=== PATIENT | female | born 1925 | race Caucasian/White ===

== ENCOUNTER 2016-04-11 12:53 | Inpatient (IN) ==
[2016-04-11] MEDS ORDERED: 0.9 % SODIUM CHLORIDE 1,000 ML IV ONE ×2 (13:07→14:34)
--- NOTE | 2016-04-11 13:19 | Emergency Department Note ---
SOB HPI - General Chief Complaint: Shortness of Breath/Dyspnea Stated Complaint: cough, fever, sob Time Seen by Provider: 04/11/16 13:15 Source: EMS, RN notes reviewed Mode of arrival: EMS Limitations: no limitations - History of Present Illness This patient with dementia apparently had fever and a cough at the long term. - Related Data Home Medications Medication Instructions Recorded Confirmed citalopram 20 mg tablet 20 mg PO QDAY tab 05/22/15 04/11/16 levothyroxine 100 mcg tablet 100 mcg PO QDAY tab 05/22/15 04/11/16 losartan 50 mg tablet 50 mg PO QHS tab 05/22/15 04/11/16 Acetaminophen [Tylenol] 650 mg PO Q4HP PRN 04/11/16 04/11/16 Bisacodyl [Laxative Suppository] 10 mg RC DAILYP PRN 04/11/16 04/11/16 Divalproex [Depakote Sprinkles] 250 mg PO QHS 04/11/16 04/11/16 Fexofenadine HCl [Allergy Relief] 60 mg PO BID 04/11/16 04/11/16 Hydrocortisone Acetate [Anusol Hc] 25 mg IL DAILY PRN 04/11/16 04/11/16 Montelukast [Singular] 1 tab PO DAILY 04/11/16 04/11/16 Na Phos,M-B/Na Phos,Di-Ba [Fleets 1 dose IL DAILYP PRN 04/11/16 04/11/16 Adult] Oxybutynin Chloride [Ditropan Xl] 5 mg PO DAILY 04/11/16 04/11/16 Polyethylene Glycol 3350 [Miralax] 17 gm PO DAILYP PRN 04/11/16 04/11/16 Previous Rx's Medication Instructions Recorded omeprazole 40 mg capsule,delayed 40 mg PO QDAY #30 cap 03/10/16 release Allergies Allergy/AdvReac Type Severity Reaction Status Date / Time alendronate sodium AdvReac Mild Nausea Verified 04/11/16 19:42 [From Fosamax] Penicillins AdvReac Mild Nausea Verified 04/11/16 19:42 Review of Systems Limitations: ROS unobtainable due to patients medical condition Past Medical History - Past Medical History Medical history: Reports: dementia, GERD, hyperlipidemia, hypertension, thyroid disease Surgical history ED: Reports: NOREEN/BSO Psychiatric history: Reports: depression Physical Exam - General Limitations: no limitations General appearance: alert - Head Head exam: atraumatic - Eye Eye exam: Present: normal appearance - ENT ENT exam: normal exam - Neck Neck exam: Present: normal inspection - Chest Chest inspection: Present: normal inspection - Respiratory Respiratory exam: Present: normal lung sounds bilaterally - Cardiovascular Cardiovascular exam: Present: regular rate, normal rhythm, normal heart sounds - Abdominal Exam Abdominal exam: Present: soft, distention. Absent: tenderness - Neurological Exam Neurological exam: Present: alert - Psychiatric Psychiatric exam: Present: normal affect - Skin Skin exam: Present: warm, dry Course Vital Signs Temperature 99.5 F 04/11/16 12:53 Pulse Rate 100 H 04/11/16 12:53 Respiratory Rate 26 H 04/11/16 12:53 Blood Pressure 153/141 04/11/16 12:53 Pulse Oximetry (%) 86 L 04/11/16 12:53 Temperature 98.6 F 04/12/16 04:00 Pulse Rate 71 04/12/16 07:00 Respiratory Rate 20 04/12/16 07:00 Blood Pressure 122/50 04/12/16 06:00 Pulse Oximetry (%) 93 04/12/16 07:00 Shortness of Breath/Dyspnea - Lab Data Lab results reviewed: Yes I reviewed the patient's lab results. Result diagrams: 04/12/16 04:23 04/12/16 04:23 Lab Results 04/11/16 04/11/16 04/11/16 Range/Units 13:10 13:10 13:10 WBC (4.5-11.0) K/mcL RBC (4.00-5.20) M/mcL Hgb (12.0-15.0) g/dL Hct (36.0-48.0) % MCV (80.0-100.0) fL MCH (26.0-34.0) pg MCHC (31.0-36.0) g/dL RDW (11.5-14.5) % Plt Count (140-440) K/mcL MPV (7.4-10.4) fL Total Counted Seg Neutrophils % (38-78) % Band Neutrophils % (0-10) % Lymphocytes % (15-49) % Monocytes % (Manual) (1-9) % Platelet Estimate (NORMAL) RBC Morphology (NORMAL) ESR 56 H (0-20) mm/hr VBG Lactic Acid (0.5-2.2) mmol/L Sodium 136 (133-145) mmol/L Potassium 4.4 (3.3-5.1) mmol/L Chloride 97 (96-108) mmol/L Carbon Dioxide 23 (22-30) mmol/L Anion Gap 16.0 (8-16) BUN 27 H (8-23) mg/dl Creatinine 1.2 H (0.6-1.1) mg/dl GFR Calculation 40 Glucose 134 H (70-105) mg/dL Calcium 8.8 (8.6-10.4) mg/dl Total Bilirubin 0.3 (0.0-1.0) mg/dL AST 18 (0-37) U/l ALT 8 (0-40) U/l Alkaline Phosphatase 88 (39-117) U/L C-Reactive Protein 7.5 H (0.0-0.8) mg/dl Total Protein 7.0 (5.9-8.4) gm/dL Albumin 3.7 (3.2-5.2) gm/dL Globulin 3.3 (2.2-3.7) gm/dL Albumin/Globulin Ratio 1.1 (1.0-2.3) Urine Color Urine Appearance Urine pH (5.0-9.0) Ur Specific Stafford (1.000-1.035) Urine Protein (NEG) mg/dL Urine Glucose (UA) (NEG) mg/dL Urine Ketones (NEG) mg/dL Urine Occult Blood (<0.03) mg/dL Urine Nitrate (NEG) Urine Bilirubin (NEG) mg/dL Urine Urobilinogen (NEG) mg/dL Ur Leukocyte Esterase (NEG) /uL Urine RBC (0-1) /hpf Urine WBC (0-4) /hpf Ur Squamous Epith Cells (0-4) /hpf Amorphous Crystals (0) /hpf Urine Bacteria (0) /hpf Urine Mucus (0) /hpf Ur Culture Indicated? Ur Strep pneumoniae Ag (NEGATIVE) 04/11/16 04/11/16 04/11/16 Range/Units 13:11 13:11 14:32 WBC 15.6 H (4.5-11.0) K/mcL RBC 3.50 L (4.00-5.20) M/mcL Hgb 9.3 L (12.0-15.0) g/dL Hct 29.3 L (36.0-48.0) % MCV 83.7 (80.0-100.0) fL MCH 26.5 (26.0-34.0) pg MCHC 31.7 (31.0-36.0) g/dL RDW 15.6 H (11.5-14.5) % Plt Count 326 (140-440) K/mcL MPV 8.0 (7.4-10.4) fL Total Counted 100 Seg Neutrophils % 63 (38-78) % Band Neutrophils % 8 (0-10) % Lymphocytes % 21 (15-49) % Monocytes % (Manual) 8 (1-9) % Platelet Estimate Normal (NORMAL) RBC Morphology Normal (NORMAL) ESR (0-20) mm/hr VBG Lactic Acid 2.7 H (0.5-2.2) mmol/L Sodium (133-145) mmol/L Potassium (3.3-5.1) mmol/L Chloride (96-108) mmol/L Carbon Dioxide (22-30) mmol/L Anion Gap (8-16) BUN (8-23) mg/dl Creatinine (0.6-1.1) mg/dl GFR Calculation Glucose (70-105) mg/dL Calcium (8.6-10.4) mg/dl Total Bilirubin (0.0-1.0) mg/dL AST (0-37) U/l ALT (0-40) U/l Alkaline Phosphatase (39-117) U/L C-Reactive Protein (0.0-0.8) mg/dl Total Protein (5.9-8.4) gm/dL Albumin (3.2-5.2) gm/dL Globulin (2.2-3.7) gm/dL Albumin/Globulin Ratio (1.0-2.3) Urine Color Kathy Urine Appearance Cloudy Urine pH 6.0 (5.0-9.0) Ur Specific Stafford 1.025 (1.000-1.035) Urine Protein 100 A (NEG) mg/dL Urine Glucose (UA) Negative (NEG) mg/dL Urine Ketones 5/tr A (NEG) mg/dL Urine Occult Blood Neg (<0.03) mg/dL Urine Nitrate Neg (NEG) Urine Bilirubin Neg (NEG) mg/dL Urine Urobilinogen Neg (NEG) mg/dL Ur Leukocyte Esterase 75 A (NEG) /uL Urine RBC 40 H (0-1) /hpf Urine WBC > 182 H (0-4) /hpf Ur Squamous Epith Cells 2 (0-4) /hpf Amorphous Crystals Mod A (0) /hpf Urine Bacteria Many A (0) /hpf Urine Mucus Many A (0) /hpf Ur Culture Indicated? Yes Ur Strep pneumoniae Ag (NEGATIVE) 04/11/16 Range/Units 14:32 WBC (4.5-11.0) K/mcL RBC (4.00-5.20) M/mcL Hgb (12.0-15.0) g/dL Hct (36.0-48.0) % MCV (80.0-100.0) fL MCH (26.0-34.0) pg MCHC (31.0-36.0) g/dL RDW (11.5-14.5) % Plt Count (140-440) K/mcL MPV (7.4-10.4) fL Total Counted Seg Neutrophils % (38-78) % Band Neutrophils % (0-10) % Lymphocytes % (15-49) % Monocytes % (Manual) (1-9) % Platelet Estimate (NORMAL) RBC Morphology (NORMAL) ESR (0-20) mm/hr VBG Lactic Acid (0.5-2.2) mmol/L Sodium (133-145) mmol/L Potassium (3.3-5.1) mmol/L Chloride (96-108) mmol/L Carbon Dioxide (22-30) mmol/L Anion Gap (8-16) BUN (8-23) mg/dl Creatinine (0.6-1.1) mg/dl GFR Calculation Glucose (70-105) mg/dL Calcium (8.6-10.4) mg/dl Total Bilirubin (0.0-1.0) mg/dL AST (0-37) U/l ALT (0-40) U/l Alkaline Phosphatase (39-117) U/L C-Reactive Protein (0.0-0.8) mg/dl Total Protein (5.9-8.4) gm/dL Albumin (3.2-5.2) gm/dL Globulin (2.2-3.7) gm/dL Albumin/Globulin Ratio (1.0-2.3) Urine Color Urine Appearance Urine pH (5.0-9.0) Ur Specific Stafford (1.000-1.035) Urine Protein (NEG) mg/dL Urine Glucose (UA) (NEG) mg/dL Urine Ketones (NEG) mg/dL Urine Occult Blood (<0.03) mg/dL Urine Nitrate (NEG) Urine Bilirubin (NEG) mg/dL Urine Urobilinogen (NEG) mg/dL Ur Leukocyte Esterase (NEG) /uL Urine RBC (0-1) /hpf Urine WBC (0-4) /hpf Ur Squamous Epith Cells (0-4) /hpf Amorphous Crystals (0) /hpf Urine Bacteria (0) /hpf Urine Mucus (0) /hpf Ur Culture Indicated? Ur Strep pneumoniae Ag Negative (NEGATIVE) - Radiology Data Radiology results reviewed: Yes I reviewed the patient's radiology results. ( chest x-ray showed mild fluid overload) Disposition Clinical Impression: Septic shock, Urinary tract infection Disposition: Xfer As Inpt ([facility])
[2016-04-11 13:55] LABS: Mean Cell Volume 83.7 fL (80.0-100.0); Mean Corpuscular HGB Conc 31.7 g/dL (31.0-36.0); Mean Corpuscular Hemoglobin 26.5 pg (26.0-34.0); Platelet Count 326 K/mcL (140-440); Red Cell Distribution Width 15.6 % (11.5-14.5)
[2016-04-11 14:05] LABS: ALT/SGPT 8 U/l (0-40); Albumin 3.7 gm/dL (3.2-5.2); Albumin/Globulin Ratio 1.1 (1.0-2.3); Alkaline Phosphatase 88 U/L (39-117); Blood Urea Nitrogen 27 mg/dl (8-23)
[2016-04-11] MEDS ORDERED: LEVOFLOXACIN 500 MG/100 ML BAG IV ONE (14:17)
[2016-04-11 14:30] LABS: Band Neutrophils % 8 % (0-10); Lymphocytes % 21 % (15-49); Monocytes % (Manual) 8 % (1-9); Platelet Estimate NORMAL (NORMAL); RBC Morphology NORMAL (NORMAL); Segmented Neutrophils % 63 % (38-78)
[2016-04-11 15:15] LABS: Appearance,Urine CLOUDY; Bacteria,Urine MANY /hpf (0); Bilirubin,Urine NEG (NEG); Color,Urine AMBER; Glucose,Urine (UA) NEGATIVE (NEG); Leukocyte Esterase,Urine 75 /uL (NEG); Mucus,Urine MANY /hpf (0); Nitrate,Urine NEG (NEG); Protein,Urine 100 mg/dL (NEG); Specific Gravity,Urine 1.025 (1.000-1.035); Urine Amorphous Crystals MOD /hpf (0); Urine Blood NEG mg/dL (<0.03); Urine RBC 40 /hpf (0-1); Urine Squamous Epithelial Cell 2 /hpf (0-4); Urine WBC > 182 /hpf (0-4); Urobilinogen,Urine NEG (NEG)
[2016-04-11] MEDS ORDERED: MIDAZOLAM 2 MG/2 ML VIAL ONE (16:54)
[2016-04-11] MEDS ORDERED: MIDAZOLAM 2 MG/2 ML VIAL IV ONE (17:17)
--- NOTE | 2016-04-11 17:32 | XRay Report ---
CLINICAL INFORMATION: Shortness of breath and cough COMPARISON: 02/26/2010. FINDINGS: The heart is borderline enlarged. Mediastinum is unremarkable. The pulmonary vessels are slightly distended when compared to the baseline study 11/12/2009. Minor lingular scarring again appreciated. No infiltrates or definite effusions. IMPRESSION: Mild CHF or volume overload Interpreted and Authenticated by: Romain Jaquez 04/11/16
--- NOTE | 2016-04-11 17:38 | XRay Report ---
CLINICAL INFORMATION: Central line placement COMPARISON: None. FINDINGS: Left IJ central line tip overlies the SVC last azygos junction. No pneumothorax or other complication from line placement. Heart size, mediastinum and pulmonary vessels are normal. Moderate bibasilar atelectasis noted. No effusion IMPRESSION: Left IJ central line in satisfactory position. No complication from line placement. Interpreted and Authenticated by: Romain Jaquez 04/11/16
[2016-04-11] MEDS ORDERED: POTASSIUM CHLORIDE 20 MEQ PACKET PO PRN (18:24)
[2016-04-11] MEDS ORDERED: ONDANSETRON 4 MG/2 ML VIAL IV PRN (18:24)
[2016-04-11] MEDS ORDERED: ACETAMINOPHEN 325 MG TABLET PO PRN (18:24)
[2016-04-11] MEDS ORDERED: MAGNESIUM SULFATE 2 GM/50 ML BAG IV PRN (18:24)
[2016-04-11] MEDS ORDERED: ACETAMINOPHEN 1,000 MG/100 ML BOTTLE IV PRN (18:24)
[2016-04-11] MEDS: NOREPINEPHRINE BITARTRATE 16 MG in 0.9 % SODIUM CHLORIDE 234 ML IV SCH (19:09)
[2016-04-11] MEDS: VASOPRESSIN 20 UNIT in DEXTROSE 5% IN WATER 99 ML IV SCH (19:12)
[2016-04-11] MEDS: 0.9 % SODIUM CHLORIDE 1,000 ML IV SCH (19:12)
[2016-04-11] MEDS: DOCUSATE SODIUM 100 MG CAPSULE PO SCH (19:13)
[2016-04-11] MEDS ORDERED: VANCOMYCIN PER PHARMACY IV ONE (19:27)
[2016-04-11] MEDS ORDERED: LEVOFLOXACIN 250 MG/50 ML BAG IV ONE (20:00)
[2016-04-11] MEDS ORDERED: SENNOSIDES/DOCUSATE SODIUM 1 TAB TABLET PO SCH (21:00)
[2016-04-11] MEDS ORDERED: VANCOMYCIN 750 MG in 0.9 % SODIUM CHLORIDE 250 ML IV ONE (21:00)
[2016-04-11] MEDS ORDERED: traZODone HCL 50 MG TABLET PO PRN (21:00)
--- NOTE | 2016-04-11 21:21 | History and Physical Report ---
DATE OF ADMISSION: 04/11/2016 DATE OF ADMISSION: 04/11/2016 REASON FOR ADMISSION: Worsening shortness of breath, increasing confusion, fever, weakness. HISTORY OF CHIEF COMPLAINT: Aileen is a resident of a [facility] [place] [facility] over the last year and a half and suffers from progressive dementia to the point where she can barely function. The patient over the last day and a half has been noticed to have increasing weakness, confusion, fever, along with productive cough. The patient was subsequently transferred to [facility] ER for evaluation. Initial workup was significant for bilateral pneumonia, along with severe sepsis with white count 15,600 and pyuria. The patient had elevated lactate and blood pressures in the 70s. She was rapidly started on crystalloids, along with antibiotics after blood cultures were drawn. In light of critical nature of this, Hospitalist Service consulted for admission and evaluation. At the time of examination, the patient is accompanied with her daughter. She was able to provide some of the history. She was last seen her normal Tuesday. No history could be obtained from patient including review of systems. Most of the history was obtained from review of medical [place] from [place] and from the ER along with ED physician and daughter. REVIEW OF SYSTEMS: A 10-point review of system attempted but could not be performed. The patient is in a near obtunded state. PAST MEDICAL HISTORY: Significant for: 1. Advanced Alzheimer's dementia. 2. Hypertension. 3. Anxiety disorder. 4. Hypothyroidism. 5. Seizure disorder. CURRENT MEDICATIONS: Depakote 250. Levothyroxine 100. Oxybutynin 5. Montelukast daily. Losartan 50. Citalopram 20. ALLERGIES: Known to: 1. PENICILLIN. 2. ALENDRONATE. SOCIAL HISTORY: The patient resides at [facility]. She has advanced dementia. No history of recent smoking, quit a long time ago. No history of alcoholism. Has three kids with a daughter whom lives nearby. FAMILY HISTORY: Significant for metastatic breast cancer, daughter; lung cancer, sister; colon cancer, father; CVA, brother. PHYSICAL EXAMINATION: GENERAL EXAMINATION: The patient is in an obtunded state. BMI 19. Height 5 feet 3 inches. VITAL SIGNS: Blood pressure 85/51, respiratory rate 29, temperature 99.5, pulse 103, saturations 92 percent on 6 liters of oxygen. HEENT: Pupils symmetric. Oral cavity moist. Oral secretions noted. No ear or nose discharge. NECK: No lymphadenopathy. Carotid bruit noted. CHEST: S1, S2, tachycardia. ESM grade 2. Diminished breath sounds, bases. Late inspiratory crackles along with absent VR, lateral and posterior inferior chest. ABDOMEN: Soft and nontender. LOWER EXTREMITY EXAMINATION: Significant for mild lymphedema along with stasis changes. No cyanosis or clubbing. No joint swelling. SKIN: No suspicious lesions. PSYCH: Obtunded state. NEURO: Could not be performed. LABS AND IMAGING: White count 15.6, hemoglobin 9.3, neutrophils 71 percent. Lactic acid 2.7, potassium 4.4, creatinine 1.2, BUN 27. LFTs unremarkable. UA significant for over 182 WBCs along with RBCs. Cultures pending. X-ray chest: Mild CHF. ASSESSMENT AND PLAN: An 89-year-old with septic shock. 1. Septic shock. Start crystalloids, vasopressors. Quintero cultures have been obtained. Continue broad antibiotic coverage. Admit to intensive care unit. Use vasopressors to keep MAP at goal. 2. Nosocomial pneumonia. Continue antibiotic coverage including Zosyn and Levaquin. CURB 65 score 3. 3. Complicated urinary tract infection. Renal ultrasound to rule out obstructive uropathy. Await cultures. Continue antibiotic coverage. 4. End-organ dysfunction including acute encephalopathy along with acute kidney injury. Continue close monitoring. 5. Underlying dementia. High risk delirium. Again close monitoring. 6. Prior medical issues including history of hypothyroidism. Continue thyroxine once patient is able to take orally. At this time, keep patient nothing by mouth. PLAN FOR TODAY: 1. Admit to ICU. 2. Vasopressors, crystalloids. 3. Renal ultrasound. 4. Broad antibiotic coverage. In light of ASSINIBOINE AND [place] TRIBES score over 20 and high risk mortality, the patient will be admitted inpatient and would require a minimum of two night stay for treatment above. The patient remains a high risk mortality. Time spent on history and physical over 55 minutes. In addition 35 minutes critical spent on stabilizing the patient, septic shock management and discussion with family. AA:[email or web address] Job ID: [id number] Doc ID: [id number] Ayaz TRAN
[2016-04-11] MEDS ORDERED: PIPERACILLIN SODIUM/TAZOBACTAM 3.375 GM VIAL IV ONE (21:30)
[2016-04-11] MEDS ORDERED: VANCOMYCIN 500 MG VIAL ONE (21:31)
[2016-04-11] MEDS: PIPERACILLIN SODIUM/TAZOBACTAM 3.375 GM in DEXTROSE 5% IN WATER 50 ML IV SCH ×2 (21:44→21:56)
[2016-04-11] MEDS ORDERED: DIVALPROEX 125 MG CAP.SPRINK PO ONE (21:50)
[2016-04-11] MEDS: HEPARIN 5,000 UNIT/ML VIAL SQ SCH (21:55)
[2016-04-11] MEDS ORDERED: OLANZapine 2.5 MG TABLET PO ONE (21:57)
[2016-04-11] MEDS: HALOPERIDOL LACTATE 5 MG/ML VIAL IV PRN (22:00)
[2016-04-11] MEDS: 0.9 % SODIUM CHLORIDE 10 ML SYRINGE IV SCH (22:30)
[2016-04-12] MEDS: DIVALPROEX 125 MG CAP.SPRINK PO SCH ×2 (00:37→19:28)
[2016-04-12] MEDS: HALOPERIDOL LACTATE 5 MG/ML VIAL IV PRN ×3 (01:15→18:47)
[2016-04-12] MEDS ORDERED: PIPERACILLIN SODIUM/TAZOBACTAM 3.375 GM VIAL IV ONE ×2 (01:19→05:18)
[2016-04-12] MEDS: PIPERACILLIN SODIUM/TAZOBACTAM 3.375 GM in DEXTROSE 5% IN WATER 50 ML IV SCH ×5 (01:47→17:34)
[2016-04-12] MEDS ORDERED: VASOPRESSIN 20 UNIT/ML VIAL ONE (02:07)
[2016-04-12] MEDS: VASOPRESSIN 20 UNIT in DEXTROSE 5% IN WATER 99 ML IV SCH ×3 (02:10→18:18)
[2016-04-12] MEDS ORDERED: NOREPINEPHRINE BITARTRATE 4 MG/4 ML AMPUL IV ONE (02:55)
[2016-04-12] MEDS: 0.9 % SODIUM CHLORIDE 1,000 ML IV SCH ×2 (03:15→14:23)
[2016-04-12] MEDS: 0.9 % SODIUM CHLORIDE 10 ML SYRINGE IV SCH ×4 (05:45→21:28)
[2016-04-12 06:08] LABS: Mean Cell Volume 84.4 fL (80.0-100.0); Mean Corpuscular HGB Conc 31.5 g/dL (31.0-36.0); Mean Corpuscular Hemoglobin 26.6 pg (26.0-34.0); Platelet Count 241 K/mcL (140-440); RBC 2.85 M/mcL (4.00-5.20); Red Cell Distribution Width 16.4 % (11.5-14.5)
[2016-04-12 06:49] LABS: ALT/SGPT 8 U/l (0-40); Albumin 2.9 gm/dL (3.2-5.2); Albumin/Globulin Ratio 1.4 (1.0-2.3); Alkaline Phosphatase 68 U/L (39-117); Bilirubin,Direct < 0.2 mg/dL (0.0-0.3); Blood Urea Nitrogen 16 mg/dl (8-23); Gamma Glutamyl Transpeptidase 9 U/L (5-36); Magnesium 1.6 mg/dL (1.6-2.5); Phosphorous 3.2 mg/dL (2.7-4.5); Uric Acid 2.9 mg/dL (2.5-8.0)
[2016-04-12] MEDS ORDERED: LEVOTHYROXINE 100 MCG TABLET PO SCH (07:30)
[2016-04-12 08:19] LABS: Anisocytosis 1+ (NONE SEEN); Band Neutrophils % 7 % (0-10); Lymphocytes % 18 % (15-49); Monocytes % (Manual) 1 % (1-9); Platelet Estimate NORMAL (NORMAL); RBC Morphology ABNORM (NORMAL); Segmented Neutrophils % 74 % (38-78)
[2016-04-12] MEDS ORDERED: MONTELUKAST 10 MG TABLET PO SCH (09:00)
[2016-04-12] MEDS ORDERED: CITALOPRAM 20 MG TABLET PO SCH (09:00)
[2016-04-12] MEDS: DOCUSATE SODIUM 100 MG CAPSULE PO SCH ×2 (09:10→19:28)
[2016-04-12] MEDS: HEPARIN 5,000 UNIT/ML VIAL SQ SCH (09:28)
[2016-04-12] MEDS: NOREPINEPHRINE BITARTRATE 16 MG in 0.9 % SODIUM CHLORIDE 234 ML IV SCH ×2 (09:30→18:18)
--- NOTE | 2016-04-12 10:40 | Internal Med Progress Note ---
Medical - PN: Subj Patient information: Note initiated : 04/12/16 at 10:37 am Service Date, if different from initiated Date: [] Patient: Aileen Garcia 89 y/o F admitted on 04/11/16 for Cough, Fever, SOB/ Septic Shock. Chief Complaint: [] Interval history: 04/11-patient admitted with hypoxic respiratory failure/septic shock requiring pressors. Admitted to ICU. Cocopah score over 20 critically ill and high risk mortality. Family does not wantintubation/CPR but would want aggressive medical management including pressors. Extremely poor prognosis explained to family. Imminent given profound hypoxiabilateral aspiration pneumonia complicated UTI and multiorgan dysfunction including encephalopathy. 04/12-white count down from 15.6-11.3. venous lactate down from 2.7 >0.9. ultures negative so far. Family at bedside. Patient continues to be critically ill on dual pressors. Very agitated and anxious and pulling on IV lines requiring Haldol at night. Underlying advanced Alzheimer's dementia with a poorbaseline status. She is currently at their dementia unit at [facility] and stays in a lockdown. Family having further discussions about goals of care. Meeting later today. Continue antibiotics pressors and septic shock management per guidelines. - Constitutional Vitals: Vital Signs Temp Pulse Resp BP Pulse Ox 98.2 F 58 L 18 145/55 96 04/12/16 08:00 04/12/16 10:00 04/12/16 10:00 04/12/16 10:00 04/12/16 10:00 Period Temp Pulse Resp BP Sys/Garcia Pulse Ox Last 24 Hr 98.2 F-101.9 F 58-112 18-30 75-154/31-141 88-100 Intake and Output 04/11/16 04/12/16 04/12/16 21:59 05:59 13:59 Intake Total 1050 / 2150 1400 / 1400 4 / 4 Output Total 1100 / 1100 850 / 850 Balance 1050 / 2150 300 / 300 -846 / -846 Weight 128 lb Intake & Output: Intake & Output 04/11/16 04/12/16 04/12/16 21:59 05:59 13:59 Intake Total 1050 / 2150 1400 / 1400 4 / 4 Output Total 1100 / 1100 850 / 850 Balance 1050 / 2150 300 / 300 -846 / -846 Weight 128 lb Intake: IV 1050 / 1150 1100 / 1100 4 / 4 Sodium Chloride 0.9% 1, 1000 / 1000 1000 / 1000 000 ml @ 100 mls/hr IV . Q10H [facility] Rx#:[id number] Levophed 16 mg In Sodium 4 / 4 Chloride 0.9% 234 ml @ 10 MCG/MIN 9.37 mls/hr IV Q24H [facility] Rx#:[id number] Oral 0 / 0 IV - Manual Only 300 / 300 Output: Urine Catheter Amount 1100 / 1100 850 / 850 General appearance: cooperative, no acute distress Exam: sedated on Haldol and morphine on 7 L oxygen Labored breathing foleys draining learurine nondistended abdomen Medical - PN: Obj Da - Labs CBC & Chem 7: 04/12/16 04:23 04/12/16 04:23 Labs: Abnormal Lab Results 04/12/16 04/12/16 04:23 04:23 WBC 11.3 H RBC 2.85 L Hgb 7.6 L Hct 24.1 L RDW 16.4 H RBC Morphology Abnorm A Polychromasia Few A Anisocytosis 1+ A Glucose 128 H Calcium 7.0 L Total Protein 5.0 L Albumin 2.9 L Globulin 2.1 L Meds: Medications Acetaminophen (Tylenol) 650 mg PO Q4-6HP PRN PRN Reason: PAIN/FEVER > 101 Divalproex Sodium (Depakote Sprinkles) 125 mg PO QHS [facility] Last Admin: 04/12/16 00:37 Dose: Not Given Docusate Sodium (Colace) 100 mg PO BID [facility] Last Admin: 04/12/16 09:10 Dose: Not Given Haloperidol Lactate (Haldol) 5 mg IV Q4HP PRN PRN Reason: ANXIETY/SEDATION Last Admin: 04/12/16 08:06 Dose: 5 mg Heparin Sodium (Porcine) (Heparin) 5,000 unit SQ Q12 [facility] Last Admin: 04/12/16 09:28 Dose: 5,000 unit Levofloxacin (Levaquin) 750 mg in 150 mls @ 100 mls/hr IV Q48H [facility] Magnesium Sulfate (Magnesium Sulfate) 2 gm in 50 mls @ 50 mls/hr IV UD PRN PRN Reason: MG = or < 1.7 Norepinephrine Bitartrate 16 (mg/ Sodium Chloride) 250 mls @ 9.37 mls/hr IV Q24H [facility]; 10 MCG/MIN PRN Reason: Protocol Last Titration: 04/12/16 10:20 Dose: 0 mcg/min, 0 mls/hr Sodium Chloride (Sodium Chloride 0.9%) 1,000 mls @ 100 mls/hr IV .Q10H [facility] Stop: 04/13/16 00:23 Last Admin: 04/12/16 03:15 Dose: 100 mls/hr Acetaminophen (Ofirmev) 1,000 mg in 100 mls @ 200 mls/hr IV Q6HP PRN PRN Reason: PAIN/FEVER > 101 Last Infusion: 04/12/16 01:16 Dose: Infused Piperacillin Sod/Tazobactam (Sod 3.375 gm/ Dextrose) 50 mls @ 100 mls/hr IV Q6 [facility] Last Admin: 04/12/16 05:44 Dose: Not Given Vasopressin 20 unit/ Dextrose 100 mls @ 12 mls/hr IV Q8H [facility]; 0.04 UNIT/MIN PRN Reason: Protocol Last Admin: 04/12/16 09:32 Dose: 0.04 unit/min, 12 mls/hr Levothyroxine Sodium (Synthroid) 100 mcg PO ACB [facility] Last Admin: 04/12/16 09:10 Dose: Not Given Montelukast Sodium (Singular) 10 mg PO DAILY [facility] Last Admin: 04/12/16 09:11 Dose: Not Given Olanzapine (Zyprexa) 2.5 mg PO HS [facility] Ondansetron HCl (Zofran) 4 mg IV Q4-6HP PRN PRN Reason: Nausea And Vomiting Pneumococcal Polyvalent Vaccine (Pneumovax 23) 0.5 ml IM .ONCE ONE Stop: 04/13/16 09:01 Potassium Chloride (Klor-Con) 40 meq PO DAILYP PRN PRN Reason: K+ < 3.5 Senna/Docusate Sodium (Senna Plus Tablet) 1 tab PO HS [facility] Last Admin: 04/11/16 19:13 Dose: Not Given Sodium Chloride (Saline Flush) 10 ml IV Q8 [facility] Last Admin: 04/12/16 05:45 Dose: 10 ml Trazodone HCl (Desyrel) 50 mg PO HSP PRN PRN Reason: Insomnia Medical - PN: A/P - Time Spent With Patient Total time spent is greater than 50% in coordination of care (as documented) at patient's floor/unit and/or counseling patient: Greater than 35 minutes (over 55 minutes) (1) Septic shock Status: Acute Assessment and plan: * septic shock-n dual vasopressors. Managed per guidelines * hypoxic respiratory failure on 7 L oxygen secondary to bilateralPneumonia * Nosocomial pneumonia versus aspiration-on broad antibiotic coverage * complicated UTI on broad antibiotic coverage * Acute infectious encephalopathy-significant deterioration in baseline. Secondary to sepsis end organeffect Plan * Patient critically ill. Very high risk mortality based on Cocopah score over 20 * Family conference for details of care * continue vasopressors antibiotics * continue ICU care Current Visit: Yes Medical - PN: Qual - VTE Deep Vein Thrombosis/Pulmonary Embolism Present on Admission: No
--- NOTE | 2016-04-12 10:50 | Ultrasound Report ---
History: Obstructive uropathy The right kidney measures 3.8 x 4.0 x 7.8 cm and the left measures 4.3 x 4.4 x 8.1 cm. Cortex is normal in thickness and echogenicity bilaterally. There is no evidence of mass, cyst, calculus or hydronephrosis. Urinary bladder is decompressed by Hansen catheter. Therefore we are unable to evaluate flow of urine through the ureters into the bladder. Impression: Relatively small but otherwise normal kidneys Interpreted and Authenticated by: Harvey Rain 04/12/16
[2016-04-12 14:53] LABS: Vancomycin,Random 5.9 ug/ml
[2016-04-12] MEDS ORDERED: VANCOMYCIN 1,250 MG in 0.9 % SODIUM CHLORIDE 500 ML IV SCH (16:00)
[2016-04-12] MEDS ORDERED: LORazepam 2 MG/ML VIAL IV PRN (18:55)
[2016-04-12] MEDS ORDERED: LORazepam 2 MG/ML VIAL ONE (19:14)
[2016-04-12] MEDS ORDERED: OLANZapine 2.5 MG TABLET PO SCH (21:00)
--- NOTE | 2016-04-13 08:50 | Discharge Summary ---
DATE OF ADMISSION: 04/11/2016 DATE OF DISCHARGE: DATE OF : 04/12/2016 CAUSE OF : Progressive hypoxic respiratory failure, septic shock secondary to nosocomial pneumonia. BRIEF HOSPITAL COURSE: The patient was admitted with hypoxic respiratory failure, septic shock and was managed on vasopressors and aggressive treatment, including antibiotics in ICU; however, due to deteriorating status the evening of family decided for comfort care and palliative measures in light of advanced dementia and poor quality of life at baseline and deteriorating overall status. The patient succumbed to progressive hypoxic respiratory failure in the next few hours. At the time of no family members were present. Multiple attempts were made by staff to call the family. AA:[email or web address] Job ID: [id number] Doc ID: [id number] Ayaz Snow MD
[2016-04-13] MEDS ORDERED: LEVOFLOXACIN 750 MG/150 ML BAG IV SCH (09:00)
[2016-04-13] MEDS ORDERED: PNEUMOCOCCAL 23-VAL P-SAC VAC 0.5 ML VIAL IM ONE (09:00)
--- NOTE | 2016-04-13 12:01 | Procedure Note ---
Procedures - Central Line Placement Left IJ Time out performed: Yes Patient placed on monitor/pulse ox: Yes MD prep: mask, sterile gown, sterile gloves, cap Central line prep: 2% Chlorhexidine scrub Local anesthesia used: lidocaine 1% Ultrasound used for placement: Yes Central line lumen inserted: quad, 16 cm Post procedure: sutured in place, good blood return, all ports aspirated, flushed, capped Post procedure x-ray: tip of catheter in good position, no pneumothorax seen Patient tolerated procedure: well, no complications Complications: none
== END 2016-04-13 10:45 | disposition expired | DRG 871 ==
LOC: ED 12:53 → MERGE 12:53 → ICU 18:17
PROVIDERS: ADMIT Internal Medicine; ATTEND Internal Medicine